=== PATIENT | female | born 1955 | race Caucasian/White ===

== ENCOUNTER 2021-06-21 08:29 | Outpatient (CLI) | payer OTHER, SELFPAY ==
--- NOTE | 2021-06-21 08:37 | MM_ITS ---
WS: [email or web address] BILATERAL SCREENING MAMMOGRAM WITH TOSHIA DISPLACEMENT VIEWS. CAD PERFORMED. HISTORY: SCREENING COMPARISON: 07/19/2018, 01/07/2016 and 09/02/2014 Bilateral craniocaudal and mediolateral like views are performed. Toshia displacement views in CC and MLO projection also performed. Breasts composition: The breasts are heterogeneously dense, which may obscure small masses. There ar e 2 asymmetries in the RIGHT breast which need further evaluation. 3 mm asymmetry seen on the implant displacement view in the central breast. Additional 5 mm asymmetry seen on the RIGHT MLO implant dis placement view below the nipple line. Neither of these were present on the prior examinations. No mc picious calcifications in either breast. The implants demonstrate partial encapsulation. MM/[place] [id number] IMPRESSION: BI-RADS: 0-Incomplete: Need additional imaging evaluation FOLLOW-UP: Need Additional Imaging RIGHT breast: Spot compression views (CC and MLO). True ML. Ultrasound to follo w if abnormality persists.
== END 2021-06-21 08:30 | disposition home or self-care (01) ==
PROVIDERS: PCP Family Medicine; Visit Provider Obstetrics & Gynecology
DX: Z12.31 Encounter for screening mammogram for malignant neoplasm of breast (principal)
CPT/HCPCS: 77067

== ENCOUNTER 2021-07-12 14:36 | Outpatient (CLI) | payer OTHER, SELFPAY ==
--- NOTE | 2021-07-12 14:30 | MM_ITS ---
WS: [email or web address] ADDITIONAL VIEWS RIGHT BREAST RIGHT breast ultrasound, limited HISTORY: Inconclusive findings on screening mammogram. COMPARISON: 06/21/2021, 07/19/2018 and 01/07/2016 Compression views right CC and MLO projection. The 3 mm asymmetry seen on the CC projection resolves with additional imaging. The additional slightl y nodular asymmetry just below the nipple line on the lateral implant displacement view is reidentifi ed. This nodule measures 4 mm. RIGHT breast ultrasound, limited Along the 5:00 axis is a cyst very small hypoechoic nodule which is slightly elongated measuring 4 x 2 x 2 mm. This may be an area of fibrocystic disease. Due to its small size follow-up is recommended. MM/[place] [id number] IMPRESSION: BI-RADS: 3-Probably Benign FOLLOW-UP: 6 Month Follow-up Recommend diagnostic RIGHT mammogram and ultrasound follow-up in 6 months. Ther e is a very small hypoechoic indeterminate nodule at 5:00 which needs further e valuation. This may be a complex cyst or fibrocystic disease.
--- NOTE | 2021-07-12 15:00 | US_ITS ---
WS: [email or web address] ADDITIONAL VIEWS RIGHT BREAST RIGHT breast ultrasound, limited HISTORY: Inconclusive findings on screening mammogram. COMPARISON: 06/21/2021, 07/19/2018 and 01/07/2016 Compression views right CC and MLO projection. The 3 mm asymmetry seen on the CC projection resolves with additional imaging. The additional slightl y nodular asymmetry just below the nipple line on the lateral implant displacement view is reidentifi ed. This nodule measures 4 mm. RIGHT breast ultrasound, limited Along the 5:00 axis is a cyst very small hypoechoic nodule which is slightly elongated measuring 4 x 2 x 2 mm. This may be an area of fibrocystic disease. Due to its small size follow-up is recommended. US/US breast RT limited* [id number] IMPRESSION: BI-RADS: 3-Probably Benign FOLLOW-UP: 6 Month Follow-up Recommend diagnostic RIGHT mammogram and ultrasound follow-up in 6 months. Ther e is a very small hypoechoic indeterminate nodule at 5:00 which needs further e valuation. This may be a complex cyst or fibrocystic disease.
== END 2021-07-12 14:37 | disposition home or self-care (01) ==
LOC: RADSHAW 14:39
PROVIDERS: PCP Family Medicine; Visit Provider Obstetrics & Gynecology
DX: R92.8 Other abnormal and inconclusive findings on diagnostic imaging of breast (principal); N63.14 Unspecified lump in the right breast, lower inner quadrant
CPT/HCPCS: 76642; 77065

== ENCOUNTER → 2022-01-03 09:47 | Outpatient (BNVA) | payer OTHER, SELFPAY | PROVIDERS: PCP Family Medicine; Visit Provider Obstetrics & Gynecology | DX: Z01.419 Encounter for gynecological examination (general) (routine) without abnormal findings (principal) | CPT/HCPCS: 87624 ==

== ENCOUNTER 2022-01-13 08:48 | Outpatient (CLI) | payer OTHER, SELFPAY ==
--- NOTE | 2022-01-13 09:01 | MM_ITS ---
WS: [email or web address] RIGHT DIGITAL BREAST TOMOSYNTHESIS MAMMOGRAPHY WITH Kyler views and CAD. RIGHT breast ultrasound, limited. HISTORY: Six-month follow-up 5 mm nodule RIGHT breast. COMPARISON: 07/12/2021, 06/21/2021 and 07/19/2018 Technique: CC, MLO and ML views. Implant displacement views and spot compression views. Breast composition: There are scattered areas of fibroglandular density. Soft tissue nodule is ident ified in the RIGHT breast measuring 5 mm. This is just lateral and inferior to the nipple line, 7-8 o 'clock. As compared to the prior examination no increase in size. RIGHT breast ultrasound, limited. Ovoid hypoechoic nodule is present at 8:00, 2 cm from the nipple measures 5 x 4 x 2 mm. This does cor respond to the abnormality on mammogram. The nodule at 5:00 is no longer visible. MM/[place] [id number] IMPRESSION: BI-RADS: 3-Probably Benign FOLLOW UP: 6 Month Follow-up Patient to return in 6 months for her annual mammogram. The RIGHT breast nodule will be readdressed at that time.
== END 2022-01-13 08:49 | disposition home or self-care (01) ==
PROVIDERS: PCP Family Medicine; Visit Provider Obstetrics & Gynecology
DX: R92.8 Other abnormal and inconclusive findings on diagnostic imaging of breast (principal)
CPT/HCPCS: 76642; 77061

== ENCOUNTER → 2022-06-23 09:03 | Outpatient (BNVA) | payer OTHER, SELFPAY | PROVIDERS: PCP Family Medicine; Visit Provider Family Medicine | DX: Z00.00 Encounter for general adult medical examination without abnormal findings (principal) | CPT/HCPCS: 80053; 80061; 82607; 84443; 85025 ==

== ENCOUNTER → 2022-09-06 09:38 | Outpatient (BNVA) | payer OTHER, SELFPAY | PROVIDERS: PCP Family Medicine; Visit Provider Family Medicine | DX: Z00.00 Encounter for general adult medical examination without abnormal findings (principal) | CPT/HCPCS: 84443 ==

== ENCOUNTER → 2023-01-05 09:00 | Outpatient (BNVA) | payer MEDICARE, SELFPAY | PROVIDERS: PCP Family Medicine; Visit Provider Obstetrics & Gynecology | DX: Z00.00 Encounter for general adult medical examination without abnormal findings (principal) | CPT/HCPCS: 87624 ==

== ENCOUNTER 2023-01-23 10:31 | Outpatient (CLI) | payer MEDICARE, SELFPAY ==
--- NOTE | 2023-01-23 10:46 | US_ITS ---
WS: [email or web address] Exam: US breast RT limited* [id number] Date/Time of Exam: 01/23/2023 11:48 AM Reason For Exam: ABNORMAL MAMMO A limited right breast ultrasound is performed at the 8:00 position in the right breast 2 cm from the nipple. Again noted is a small ovoid hypoechoic solid nodule at the 8:00 position 2 cm from the nipp le. This is unchanged in size and measures approximately 0.52 cm x 0.33 cm by 0.18 cm. This may be a small intramammary lymph node. Recommendations: Continue yearly screening mammography. US/US breast RT limited* [id number] IMPRESSION: 1. Stable-appearing small hypoechoic ovoid nodule at the 8:00 position in the r ight breast. BI-RADS: 2-benign.
--- NOTE | 2023-01-23 10:46 | MM_ITS ---
WS: [email or web address] VIEWS: MLO, CC, and ML views both breasts. Breast implant displacement MLO and CC views also include d in this series. 3D digital tomosynthesis is also included in this exam. Additional compression spot images of the right breast were also obtained. Comparison made with prior exam of 09/02/2014, 01/07/2016, 07/19/2018, 06/21/2021, 07/12/2021.. Findings: Again noted is a 5 mm smoothly marginated nodule in the right breast just lateral and inferior to the nipple line. This is unchanged in appearance since the latest exam 01/13/2022. No new findings in eith er breast. Encapsulated bilateral breast implants which are silicone.There are scattered areas of fib roglandular density in each breast. MM/[place] [id number] Impression: BI-RADS: 3-Probably Benign FOLLOW-UP: 1 Year Follow-up This mammogram was also analyzed by the Computer Aided Detection System R2 Imag e Galvanizer [employer].
== END 2023-01-23 10:32 | disposition home or self-care (01) ==
PROVIDERS: PCP Family Medicine; Visit Provider Obstetrics & Gynecology
DX: R92.8 Other abnormal and inconclusive findings on diagnostic imaging of breast (principal)
CPT/HCPCS: 76642; 77062; G0279

== ENCOUNTER → 2023-02-23 07:51 | Outpatient (BNVA) | payer MEDICARE, SELFPAY | PROVIDERS: PCP Family Medicine; Referring Provider Obstetrics & Gynecology; Visit Provider Nurse Practitioner Family | DX: Z85.828 Personal history of other malignant neoplasm of skin (principal); Z80.8 Family history of malignant neoplasm of other organs or systems; Z12.83 Encounter for screening for malignant neoplasm of skin; L70.0 Acne vulgaris; L82.1 Other seborrheic keratosis; D18.01 Hemangioma of skin and subcutaneous tissue; L90.5 Scar conditions and fibrosis of skin | CPT/HCPCS: 99204 ==

== ENCOUNTER → 2023-06-26 10:05 | Outpatient (BNVA) | payer MEDICARE, SELFPAY | PROVIDERS: PCP Family Medicine; Visit Provider Family Medicine | DX: Z00.00 Encounter for general adult medical examination without abnormal findings; Z13.6 Encounter for screening for cardiovascular disorders; R79.89 Other specified abnormal findings of blood chemistry | CPT/HCPCS: 80053; 80061; 84443; 85025 ==

== ENCOUNTER → 2023-06-27 10:05 | Outpatient (BNVA) | payer MEDICARE, SELFPAY | PROVIDERS: PCP Family Medicine; Visit Provider Family Medicine | DX: Z12.11 Encounter for screening for malignant neoplasm of colon (principal); Z78.0 Asymptomatic menopausal state; Z00.00 Encounter for general adult medical examination without abnormal findings; R79.89 Other specified abnormal findings of blood chemistry; R94.6 Abnormal results of thyroid function studies; Z13.6 Encounter for screening for cardiovascular disorders; G47.00 Insomnia, unspecified; Z23 Encounter for immunization | CPT/HCPCS: 84439; 84481 ==

== ENCOUNTER → 2023-09-16 10:39 | Outpatient (BNVA) | payer MEDICARE, SELFPAY | PROVIDERS: PCP Family Medicine; Visit Provider Emergency Medicine | DX: R09.81 Nasal congestion (principal) | CPT/HCPCS: 87426 ==

== ENCOUNTER → 2023-10-24 08:16 | Outpatient (BNVA) | payer MEDICARE, SELFPAY | PROVIDERS: PCP Family Medicine; Visit Provider Nurse Practitioner Family | DX: Z80.8 Family history of malignant neoplasm of other organs or systems (principal); Z12.83 Encounter for screening for malignant neoplasm of skin; L73.8 Other specified follicular disorders; L70.0 Acne vulgaris; L82.1 Other seborrheic keratosis; D18.01 Hemangioma of skin and subcutaneous tissue; L90.5 Scar conditions and fibrosis of skin; L57.0 Actinic keratosis; Z85.828 Personal history of other malignant neoplasm of skin | CPT/HCPCS: 17000; 99214 ==

== ENCOUNTER → 2024-01-09 10:46 | Outpatient (BNVA) | payer MEDICARE, SELFPAY | PROVIDERS: PCP Family Medicine; Visit Provider Nurse Practitioner Women's Health | DX: Z01.419 Encounter for gynecological examination (general) (routine) without abnormal findings (principal); G47.00 Insomnia, unspecified; E03.8 Other specified hypothyroidism | CPT/HCPCS: 82306; 82465; 83718; 83721; 84439; 84443; 84481 ==

== ENCOUNTER 2024-01-25 12:53 | Outpatient (CLI) | payer MEDICARE, SELFPAY ==
--- NOTE | 2024-01-25 12:58 | MM_ITS ---
WS: [email or web address] Bilateral screening 3D tomosynthesis digital mammogram, 01/25/2024 Clinical Data: SCREENING Comparison: 01/23/2023, 01/13/2022, 07/12/2021, 06/21/2021, 07/19/2018, 01/07/2016, 09/02/2014, 08/29/2013, , 10/27/2009, 08/25/2008, 08/16/2007, 08/15/2006, 08/07/2006. Findings: The breast parenchymal pattern shows heterogeneous density. No spiculated masses or clustered calcifi cations are seen. There are no secondary signs of carcinoma. Implant displacement views were obtained . The bilateral augmentation mammoplasty implants are intact. There are small bilateral benign calcif ications in the left breast. MM/[place] [id number] Impression: 1. Negative bilateral mammogram with intact bilateral augmentation mammoplasty implants unchanged. 2. Recommend annual screening mammograms. BIRADS: 2-Benign FOLLOW UP: 1 Year Follow-up The CAD dead mail checker was used.
--- NOTE | 2024-01-25 13:00 | XR_ITS ---
WS: [email or web address] DEXA (DUAL ENERGY X-RAY ABSORPTIOMETRY) Bone mineral density was performed using a InflowControl machine. HISTORY: M81.0 - Age-related osteoporosis without current patholog... COMPARISON: None available. Lumbar spine BMD (L1-L4): 1.027 g/cm2 T score: -1.3 Z score: 0.0 Total hip BMD: Left: 0.758 g/cm2. T score: -2.0 Z score: -1.0 Right: 0.754 g/cm2. T score: -2.0 Z score: -1.0 10 year probability of a major osteoporotic fracture is 18.3%. XR/XR DEXA axial skeleton* [id number] IMPRESSION: OSTEOPENIA based upon the WHO classification for females.
== END 2024-01-25 12:54 | disposition home or self-care (01) ==
LOC: RAD 12:54
PROVIDERS: PCP Family Medicine; Visit Provider Nurse Practitioner Women's Health
DX: M81.0 Age-related osteoporosis without current pathological fracture (principal); Z12.31 Encounter for screening mammogram for malignant neoplasm of breast; R92.333 Mammographic heterogeneous density, bilateral breasts; Z98.82 Breast implant status; R92.1 Mammographic calcification found on diagnostic imaging of breast; M85.80 Other specified disorders of bone density and structure, unspecified site
CPT/HCPCS: 77063; 77067; 77080

== ENCOUNTER → 2024-02-07 13:53 | Outpatient (BNVA) | payer MEDICARE, SELFPAY | PROVIDERS: PCP Family Medicine; Visit Provider Family Medicine | DX: E03.8 Other specified hypothyroidism (principal) | CPT/HCPCS: 84439; 84443 ==

== ENCOUNTER → 2024-07-23 14:51 | Outpatient (BNVA) | payer MEDICARE, SELFPAY | PROVIDERS: PCP Family Medicine; Visit Provider Family Medicine | DX: M85.80 Other specified disorders of bone density and structure, unspecified site (principal); Z78.0 Asymptomatic menopausal state; E03.9 Hypothyroidism, unspecified; E03.8 Other specified hypothyroidism; G47.00 Insomnia, unspecified; E78.5 Hyperlipidemia, unspecified | CPT/HCPCS: 80053; 80061; 84439; 84443 ==

== ENCOUNTER → 2024-10-24 09:35 | Outpatient (BNVA) | payer MEDICARE, SELFPAY | PROVIDERS: PCP Family Medicine; Visit Provider Nurse Practitioner Family | DX: L70.0 Acne vulgaris (principal); L82.1 Other seborrheic keratosis; D18.01 Hemangioma of skin and subcutaneous tissue; L90.5 Scar conditions and fibrosis of skin; Z08 Encounter for follow-up examination after completed treatment for malignant neoplasm; Z85.828 Personal history of other malignant neoplasm of skin; Z80.8 Family history of malignant neoplasm of other organs or systems; L82.0 Inflamed seborrheic keratosis; L29.89 Other pruritus; L53.8 Other specified erythematous conditions; R20.8 Other disturbances of skin sensation; Z78.9 Other specified health status | CPT/HCPCS: 17000; 17110; 99214 ==

== ENCOUNTER 2025-01-28 10:41 | Outpatient (CLI) | payer MEDICARE, SELFPAY ==
--- NOTE | 2025-01-28 11:00 | MM_ITS ---
WS: [email or web address] BILATERAL 3D TOMOSYNTHESIS DIGITAL SCREENING MAMMOGRAPHY WITH CAD CLINICAL INFORMATION: Z12.31 - Encounter for screening mammogram for malignant ... HISTORY: Screening mammogram. No current complaints. COMPARISON: 2020 TECHNIQUE: Bilateral CC and MLO views. FINDINGS: Stable bilateral breast implants with capsular calcifications. The breasts are composed of heterogeneous fibroglandular density tissue, which can limit the detection of small underlying mass lesions. No suspicious mass, asymmetry, calcifications, or architectural distortion. No evidence of malignancy. Incidental punctate lucent centered calcifications. MM/MM [facility] tomosynthesis [id number] IMPRESSION: DENSITY: The breasts are heterogeneously dense, which may obscure small masses. BI-RADS: 2 - Benign FOLLOW UP: 1 Year Follow-up Recommend return to annual screening mammography.
== END 2025-01-28 10:42 | disposition home or self-care (01) ==
LOC: RAD 10:42
PROVIDERS: PCP Family Medicine; Visit Provider Nurse Practitioner Women's Health
DX: Z12.31 Encounter for screening mammogram for malignant neoplasm of breast (principal); R92.333 Mammographic heterogeneous density, bilateral breasts; R92.323 Mammographic fibroglandular density, bilateral breasts; R92.1 Mammographic calcification found on diagnostic imaging of breast
CPT/HCPCS: 77063; 77067